=== PATIENT | female | born 1990 | race Hispanic/Latino ===

== ENCOUNTER 2016-07-23 15:54 | Outpatient (CLI) | payer BC ==
[~2016-07-23] VITALS: Ht 162.6 cm; Wt 75.7 kg
[~2016-07-23 15:54] MED LIST: ACYC200C PO; DCS100C PO; HYDR-3720 PO; Ibuprofen PO; METH4TAB PO; PREN1COM6 PO
[2016-07-23] MEDS ORDERED: ACYC400T PO (16:07)
[2016-07-23] MEDS ORDERED: CITA20TA12 PO (16:07)
[2016-07-23 16:08] VITALS: BP 122/77
[2016-08-04] MEDS ORDERED: OXYC-465 PO (07:49)
[2016-08-04] MEDS ORDERED: IBUP-1780 PO (07:49)
[2016-08-04] MEDS ORDERED: DOCU100C37 PO (07:49)
== END 2016-07-23 16:15 | disposition home or self-care (01) ==
LOC: PREOP 15:54
PROVIDERS: ATTEND Obstetrics & Gynecology
DX: Z01.812 Encounter for preprocedural laboratory examination (principal); Z11.2 Encounter for screening for other bacterial diseases; O34.211 Maternal care for low transverse scar from previous cesarean delivery
CPT/HCPCS: 87081

== ENCOUNTER 2016-08-03 09:45 | Inpatient (IN) | payer BC ==
[~2016-08-03] VITALS: Ht 161.3 cm; Wt 74.8 kg
[~2016-08-03 09:45] MED LIST changes: +ACYC400T PO; +CITA20TA12 PO
[2016-08-03 10:07] VITALS: BP 118/62
[2016-08-03] MEDS ORDERED: CITRIC ACID/SOB CIT (BICITRA) 30 ML UDC PO ONE (10:45)
[2016-08-03] MEDS ORDERED: METOCLOPRAMIDE INJ 10 MG/2 ML (REGLAN) IV ONE (10:45)
[2016-08-03] MEDS ORDERED: CATHETER FLUSH 10 ML SYR IV PRN (10:45)
[2016-08-03] MEDS ORDERED: FAMOTIDINE 20MG/2ML IV (PEPCID) IV ONE (10:45)
[2016-08-03 10:49] LABS: BASOPHILS % (AUTO) 1 % (0-10); EOSINOPHILS # (AUTO) 0.1 10^3/uL (0.0-0.3); EOSINOPHILS % (AUTO) 2 % (0-10); LYMPHOCYTES # (AUTO) 1.3 X 10^3 (1.0-4.0); LYMPHOCYTES % (AUTO) 21 % (12-44); MEAN CORPUSCULAR HEMOGLOBIN 32 PG (25-34); MEAN CORPUSCULAR HGB CONC 33 G/DL (32-36); MEAN CORPUSCULAR VOLUME 95 FL (80-99); MEAN PLATELET VOLUME 10.6 FL (7.4-10.4); MONOCYTES # (AUTO) 0.5 X 10^3 (0.0-1.0); MONOCYTES % (AUTO) 8 % (0-12); NEUTROPHILS # (AUTO) 4.3 X 10^3 (1.8-7.8); NEUTROPHILS % (AUTO) 70 % (42-75); PLATELET COUNT 132 10^3/uL (130-400); RED BLOOD COUNT 3.74 10^6/uL (4.35-5.85); RED CELL DISTRIBUTION WIDTH 13.1 % (10.0-14.5); WHITE BLOOD COUNT 6.1 10^3/uL (4.3-11.0)
[2016-08-03] MEDS ORDERED: metroNIDAZOLE 500MG/100ML IVPB 100 ML IV NR (12:00)
[2016-08-03] MEDS ORDERED: ceFAZolin 2 GM/50 ML NS 50 ML IV NR (12:00)
[2016-08-03] MEDS ORDERED: NS (IVPB) 50 ML ONE ×2 (12:09→12:14)
[2016-08-03] MEDS ORDERED: CLINDAMYCIN 900 MG/6ML (CLEOCIN) VIAL ONE ×2 (12:09→12:14)
[2016-08-03] MEDS ORDERED: D5 LR IV SOLUTION 1,000 ML IV SCH (12:10)
[2016-08-03] MEDS ORDERED: OXYTOCIN/NORMAL SALINE 500 ML IV SCH (12:12)
[2016-08-03] MEDS ORDERED: TETANUS,DIPTH,PERTUSS P/F (BOOSTRIX) 0.5 ML VIAL IM ONE (12:15)
[2016-08-03] MEDS ORDERED: MEPERIDINE (DEMEROL) INJ 100 MG/ML IM PRN (12:15)
[2016-08-03] MEDS ORDERED: MEASLES,MUMPS,RUBELLA 1 EA INJ SC ONE (12:15)
[2016-08-03] MEDS ORDERED: CLINDAMYCIN INJECTION 900 MG in NS (IVPB) 50 ML IV ONE (12:15)
--- NOTE | 2016-08-03 12:17 | History & Physical ---
History and Physical this patient is a 25-year-old 1 white female with an EDC of [id number] [phone] putting her at 38-5/7 weeks gestation. She's had a previous . Her history is significant with oligohydramnios with that she's now had a progressively decreasing RADHA. Physical profile on this date at a value of 5 out of 8. With the decreasing RADHA and the suspicious biophysical profile decision made to go ahead with repeat . Patient denies rupture membranes or bleeding. Her GBS culture was negative. 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 Allergies are to Ceclor and latex Medications are Celexa acyclovir and vitamins Medical surgical and social histories are per the antepartum record HEENT exam is normal Neck is supple no lymphadenopathy and no thyromegaly Abdomen is gravid soft nontender nondistended Extremities show no clubbing cyanosis. There is no Homans sign. Pelvic exam is deferred monitor shows normal heart rate pattern with contractions every 4-5 minutes. Laboratory Tests 08/03/16 10:15 Assessment and plan 38-5/7 weeks' gestation with oligohydramnios in a patient with previous . He BP performed in my clinic on this date at a value of 5 out of 8 which is suspicious at best. Plan is to proceed now with repeat delivery. 38-5/7 weeks' gestation with previous and oligohydramnios and suspicious biophysical profile Allergies and Home Medications Allergies Coded Allergies: Cefaclor (Verified Allergy, Unknown, RASH, 12/03/13) latex (Verified Allergy, Unknown, HIVES, 12/03/13) Home Medications Acyclovir 400 Mg Tablet, 400 MG PO BID, (Reported) Citalopram Hydrobromide 20 Mg Tablet, 20 MG PO DAILY, (Reported) Vit #91/Fe Fum/Fa/Dha 1 Each Combo..pkg, 1 EACH PO DAILY, (Reported) Clinical Quality Measures DVT/VTE Risk/Contraindication: Risk Factor Score Per Nursin RFS Level Per Nursing on Admit: 1=Low/No VTE PPX YINKA DAVIS MD August 03, 2016 12:17
[2016-08-03] MEDS ORDERED: D5 LR IV SOLUTION 1,000 ML IV ONE (12:20)
[2016-08-03] MEDS ORDERED: morphine PF (DURAMORPH) 10 MG/10 ML AMP ONE (12:21)
[2016-08-03] MEDS ORDERED: fentaNYL INJECTION 250 MCG/5 ML AMP ONE (12:21)
[2016-08-03 12:26] VITALS: BP 130/74
[2016-08-03] MEDS ORDERED: OXYTOCIN/NORMAL SALINE 1,000 ML IV ONE (12:56)
[2016-08-03] MEDS ORDERED: KETOROLAC 30 MG/ML VIAL ONE (12:56)
[2016-08-03] MEDS ORDERED: NALOXONE 0.4 MG/ML 1 ML (NARCAN) VIAL IV PRN (13:30)
[2016-08-03] MEDS ORDERED: fentaNYL INJECTION 100 MCG/2 ML AMP INJ ONE (13:30)
[2016-08-03] MEDS ORDERED: morphine PF (DURAMORPH) 10 MG/10 ML AMP INJ ONE (13:30)
[2016-08-03] MEDS ORDERED: ONDANSETRON 4 MG/2 ML (SDV) Z0FRAN IV PRN (13:30)
[2016-08-03 14:30] VITALS: BP 109/67
[2016-08-03] MEDS: oxyCODONE/APAP 10/325MG (PERCOCET 10) TABLET PO PRN (17:04)
--- NOTE | 2016-08-03 17:07 | OPERATIVE REPORT ---
DATE OF SERVICE: 08/03/2016 PREOPERATIVE DIAGNOSES: 38-5/7th weeks' gestation with oligohydramnios and previous and suspicious testing. POSTOPERATIVE DIAGNOSES: 38-5/7th weeks' gestation with oligohydramnios and previous and suspicious testing with nuchal cord. OPERATIVE PROCEDURE: Repeat low transverse delivery of a viable male with Apgars of 7 and 8 at 1 and 5 minutes respectively. Weight was 6 pounds 8 ounces. Cord blood had a pH of 7.31. OPERATIVE DESCRIPTION: With the patient in the supine position under satisfactory spinal anesthesia, she was prepped and draped in the usual fashion for abdominal surgery. A Sher catheter was placed in the urinary bladder. A repeat Pfannenstiel incision was made through the skin with the scalpel at the site of the patient's previous Pfannenstiel incision. The scar was actually removed from the skin in the process of opening the abdomen. With the abdomen open, bladder retractor was placed into position, clean scalpel was used to make a 4 cm ____ incision transversally across lower uterine segment that was extended by blunt dissection as well. Membranes were ruptured in the process, releasing a very small amount of clear amniotic fluid. A vigorous viable male was delivered via the incision. Nickerson forceps were applied to facilitate the delivery. The had a nuchal cord x1. After delivery of the head, the was bulb suctioned, the nuchal cord was released, and the delivery completed. Infant was bulb suctioned again as the cord was doubly clamped and cut, and the infant passed to Ms. Keller, the pediatric nurse, in attendance for delivery. Cord blood was obtained, including the cord for arterial blood for the pH. The placenta then delivered spontaneously Jacobs, it was normal with a 3-vessel cord. The uterus was exteriorized anterior and wiped clean with a wet laparotomy sponge. Uterine incision was closed with a running locked suture of 2-0 Vicryl. Hemostasis was complete. The uterus was returned to the abdominal cavity. All blood clot and debris were removed from the abdominal cavity. Sponge and needle counts were correct, and hemostasis was assured. The anterior peritoneum was closed with a running suture of 2-0 Vicryl. The rectus muscles were closed with that suture as well. The rectus fascia was closed with 2-0 Vicryl. Subcutaneous tissue was closed with 2-0 Vicryl, and the skin was stapled. Sponge and needle counts were correct at the end of the procedure. Estimated blood loss for the procedure was around 500 mL. The patient tolerated the procedure well and was transferred to the recovery room in a stable condition. The had been taken stable to the full-term nursery the care of nurse Amarjit Krishna. Job ID: [id number] DocumentID: [id number] Dictated Date: 08/03/2016 13:11:38 [employer] Officer Date: 08/03/2016 15:19:19 Dictated By: YINKA DAVIS MD
[2016-08-03 20:00] VITALS: BP 114/67
[2016-08-03] MEDS: DOCUSATE SODIUM 100 MG (COLACE) CAP PO SCH (20:50)
[2016-08-03] MEDS: KETOROLAC 30 MG/ML VIAL IVP SCH (20:51)
[2016-08-04] MEDS: oxyCODONE/APAP 10/325MG (PERCOCET 10) TABLET PO PRN ×4 (00:26→21:15)
[2016-08-04] MEDS: KETOROLAC 30 MG/ML VIAL IVP SCH ×2 (00:55→06:25)
[2016-08-04 04:00] VITALS: BP 114/70
--- NOTE | 2016-08-04 07:44 | Progress Note-Standard ---
Standard Progress Note Progress Notes/Assess & Plan Progress/Assessment & Plan this patient without complaint. She is ablating, voiding, tolerating by mouth well, has good pain control. Vital Signs Date Time Temp Pulse Resp B/P (MAP) Pulse Ox O2 Delivery O2 Flow Rate FiO2 08/04/16 04:00 96.7 97 16 114/70 97 Room Air 08/03/16 20:00 97.7 91 18 114/67 96 Room Air 08/03/16 14:30 96.7 70 16 109/67 98 Room Air 08/03/16 12:26 100 18 130/74 Room Air 08/03/16 10:07 98.3 82 18 118/62 Room Air I & O 08/04/16 07:00 Intake Total 2056 ml Output Total 2700 ml Balance -644 ml vital signs are stable. Patient is afebrile. Fundus is firm below the umbilicus and nontender. Incision is clean dry and intact. Extreme show no clubbing cyanosis. There is no Homans sign. There is some pretibial pitting edema that is normal. Assessment and plan postoperative day number 1 status post repeat doing well. Plan is for routine convalescence care today and consider discharge home tomorrow YINKA DAVIS MD August 04, 2016 7:44 am
[2016-08-04] MEDS ORDERED: OXYC-465 PO (07:49)
[2016-08-04] MEDS ORDERED: DOCU100C37 PO (07:49)
[2016-08-04] MEDS ORDERED: IBUP-1780 PO (07:49)
--- NOTE | 2016-08-04 07:50 | Discharge Instructions ---
Discharge Instructions Discharge Medications New, Converted or Re-Newed RX: RX on Chart (as directed) Patient Instructions Patient Instructions: as directed Return to The Hospital For: as directed Activity & Diet Discharge Diet: No Restrictions Activity as Tolerated: No Orders-Post D/C & Referrals Follow Up Appt: RTC 1 week for incision check. Call to make follow up appt. for patient in 4 weeks. Wound Care: Remove rosie, apply benzoin and steri strips. Activity Per routine post instructions. Please call in RX to patient pharmacy. Diet as tolerated Patient may shower or tub bathe as desired. Continue home meds YINKA DAVIS MD August 04, 2016 7:50 am
[2016-08-04] MEDS: DOCUSATE SODIUM 100 MG (COLACE) CAP PO SCH ×2 (08:45→21:22)
[2016-08-04 08:46] VITALS: BP 102/57
[2016-08-04] MEDS: IBUPROFEN 800 MG (MOTRIN) TAB PO SCH ×2 (12:36→18:31)
--- NOTE | 2016-08-04 13:06 | Anesthesia-General Post-Op ---
General Patient Condition Mental Status/LOC: Same as Preop Cardiovascular: Satisfactory Nausea/Vomiting: Absent Respiratory: Satisfactory Pain: Controlled Complications: Absent Post Op Complications Complications None Follow Up Care/Instructions Patient Instructions None needed. Anesthesia/Patient Condition Patient Condition Patient is doing well, no complaints, stable vital signs, no apparent adverse anesthesia problems. No complications reported per nursing. ALEXEY BARBOUR CRNA August 04, 2016 13:06
[2016-08-04 18:33] VITALS: BP 108/68
[2016-08-04 21:12] VITALS: BP 101/63
[2016-08-05] MEDS: IBUPROFEN 800 MG (MOTRIN) TAB PO SCH ×2 (00:09→08:14)
[2016-08-05 03:00] VITALS: BP 105/64
[2016-08-05] MEDS: oxyCODONE/APAP 10/325MG (PERCOCET 10) TABLET PO PRN ×3 (03:48→13:14)
--- NOTE | 2016-08-05 07:35 | Progress Note-Standard ---
Standard Progress Note Progress Notes/Assess & Plan Progress/Assessment & Plan this patient without complaint. She is ablating, voiding, tolerating by mouth well, has good pain control. Vital Signs Date Time Temp Pulse Resp B/P (MAP) Pulse Ox O2 Delivery O2 Flow Rate FiO2 08/04/16 04:00 96.7 97 16 114/70 97 Room Air 08/03/16 20:00 97.7 91 18 114/67 96 Room Air 08/03/16 14:30 96.7 70 16 109/67 98 Room Air 08/03/16 12:26 100 18 130/74 Room Air 08/03/16 10:07 98.3 82 18 118/62 Room Air I & O 08/04/16 07:00 Intake Total 2056 ml Output Total 2700 ml Balance -644 ml vital signs are stable. Patient is afebrile. Fundus is firm below the umbilicus and nontender. Incision is clean dry and intact. Extreme show no clubbing cyanosis. There is no Homans sign. There is some pretibial pitting edema that is normal. Assessment and plan postoperative day number 1 status post repeat doing well. Plan is for routine convalescence care today and consider discharge home tomorrow July 06, 2016 This patient is without complaint. She is ambulating, voiding, tolerating by mouth well, has good pain control, and is requesting discharge home. Vital Signs Date Time Temp Pulse Resp B/P (MAP) Pulse Ox O2 Delivery O2 Flow Rate FiO2 08/05/16 03:00 97.8 89 16 105/64 96 Room Air 08/04/16 21:12 97.2 77 16 101/63 97 08/04/16 18:33 97.4 90 18 108/68 97 08/04/16 08:46 99.0 95 18 102/57 99 Room Air I & O 08/05/16 07:00 Intake Total 1100 ml Output Total 1000 ml Balance 100 ml vital signs are stable. Patient afebrile. Fundus is firm below the umbilicus and nontender. The incision is clean dry and intact. Extremities show no clubbing cyanosis. There is no Homans sign. There is some pretibial pitting edema that is normal. Assessment and plan postoperative day number 2 status post repeat doing well. Plan is for discharge home follow-up in clinic Final Diagnosis term repeat RYAN,YINKA G MD August 05, 2016 7:35 am
[2016-08-05] MEDS: DOCUSATE SODIUM 100 MG (COLACE) CAP PO SCH (08:42)
[2016-08-05 09:50] VITALS: BP 110/78
[2016-08-05 12:00] VITALS: BP_SYST 104; BP_SYST 105; BP_DIAS 65; BP_DIAS 74
== END 2016-08-05 16:10 | disposition home or self-care (01) | DRG 765 ==
LOC: LDRP 09:45
PROVIDERS: ADMIT Obstetrics & Gynecology; ATTEND Obstetrics & Gynecology
PROC: 10D00Z1 Extraction of Products of Conception, Low, Open Approach (ICD-10-PCS; principal; 2016-08-03 12:28)
DX: O98.52 Other viral diseases complicating childbirth (principal); O34.211 Maternal care for low transverse scar from previous cesarean delivery; O41.03X0 Oligohydramnios, third trimester, not applicable or unspecified; O69.81X0 Labor and delivery complicated by cord around neck, without compression, not applicable or unspecified; Z3A.38 38 weeks gestation of pregnancy; Z37.0 Single live birth
CPT/HCPCS: 36415; 85025; 86850; 86900; 86901; 94664